=== PATIENT | male | born 1995 | race Asian ===

== ENCOUNTER 2024-04-15 17:41 | Emergency (ER) | payer SELFPAY ==
--- NOTE | 2024-04-15 17:53 | ED.GENMED ---
History of Present Illness
General
Chief Complaint: Substance Abuse
Source: patient
Time Seen by Provider: 04/15/24 17:49
History of Present Illness
History of Present Illness:
See MDM
Past History
Past History
ED Past Medical History: None
ED Past Surgical History: None
Social History
Tobacco: Non-smoker
Drug: Other (Meth)
Phy Exam
Physical Exam
Physical Exam:
See MDM
Course
Orders/Labs/Results
Orders:
Orders
04/15/24 17:50
Complete Blood Count/With Diff Urgent
Comprehensive Metabolic Panel Urgent
Troponin I Urgent
CR Chest - 2 Views Urgent
Comment:
Reason For Exam: left side chest pain
04/15/24 17:51
Electrocardiogram (*1) Urgent
Reason for Study: Chest Pain
EKG- Treatment ONCE
04/15/24 17:53
Urine Drug Abuse Screen Urgent
MDM/Problems Addressed
Differential Diagnosis Includes:
HPI and MDM Narrative:
29-year-old male presenting for evaluation of chest pain. However, patient has abnormal behavior. He is very fidgety and aggressive. EMS stating there is a history of meth use. I did question whether or not patient is currently using meth. He
denies but his girlfriend did call indicating concern that he used meth today
Patient Going back and forth whether or not he want to be checked out. He understands the risks of myocarditis, endocarditis, cardiac arrhythmia, heart attack, pulmonary embolism and pneumothorax. Regardless of all of this, patient becoming more
agitated and irritable. I confronted him that I am concerned he is currently on meth. I offered and suggested evaluation from the drug and alcohol counselor. Patient declined. patient becoming more aggressive and asking to leave. I did escort
the patient out and discussed that we are always here to evaluate his symptoms if he ever changes his mind
Physical exam
General: Irritable, fidgety. Ambulating without difficulty
HEENT: protecting airway
Neck: appears supple
CV: No evidence of cyanosis. No murmur
Resp: No accessory muscle use. Lungs clear
Abd: Non-distended
Extremities: No deformities
Neuro: alert
Psych: Irritable
Skin: Intact
Problems Addressed including Acute and Chronic Conditions affecting care:
1. Chest pain
Acuity: acute
Prognosis: stable
Details: Likely in setting of drug use. Patient would not comply with full exam and would not consent to blood work, EKG or chest x-ray. Patient understands risks of missing something life-threatening
Differential Diagnosis (but not limited to): myocarditis, endocarditis, cardiac arrhythmia, heart attack, pulmonary embolism and pneumothorax
Testing considered: CT PE
Drug therapy (if applicable): OTC meds, please see d/c instruction regarding Rx drugs
Amount and/or Complexity of Data Reviewed
Clinical info obtained from: Patient
External data reviewed: N/A
Labs I independently reviewed (but not limited to): N/A
Radiology: N/A
Pulse Ox: not hypoxic
EKG independently reviewed: N/A
Tractor Expert: N/A
Critical Care: N/A
Risk of Complication:
Social Determinants of health: Good social support
Discussed with other providers: N/A
Escalation of Care includes Admit/Obs: A patient left the emergency department with verbal instructions. He would not comply with any testing and would not wait for written instructions
Occasional wrong word or 'sound a like' substitutions may have occurred due to the inherent limitations of voice recognition software. Read the chart carefully and recognize, using context, where substitutions have occurred.
*Critical Care Note
Total Time (30-74mins, 75-104mins- exclusive of procedures): Not Applicable
ED Attending Note
-
Portions of this chart may have been created with voice recognition software.� Occasional wrong word or��sound alike� substitutions may have occurred due to the inherent limitations of voice recognition software.
Discharge Plan
Departure
Patient Disposition: Home (Routine Discharge)
Date of Disposition: 04/15/24
Time of Disposition: 18:02
Patient with high blood pressure during this ER visit?: No
Discharge Problem:
Chest pain, Drug abuse
Discharge Date and Time
Print Language: BELARUSIAN
== END 2024-04-15 18:13 | disposition home or self-care (01) ==
LOC: EMR 17:41
PROVIDERS: EMERGENCY PHYSICIAN Student in an Organized Health Care Education/Training Program
DX: R07.89 Other chest pain (principal); F19.10 Other psychoactive substance abuse, uncomplicated
CPT/HCPCS: 99282